=== PATIENT | male | born 1965 | race Caucasian/White ===

== ENCOUNTER 2019-03-22 01:21 | Emergency (ER) | payer SELFPAY, OTHER ==
[2019-03-22] MEDS: ACETAMINOPHEN 500 MG TAB PO (04:37)
[2019-03-22] MEDS: FAMOTIDINE 20 MG TAB PO (04:37)
== END 2019-03-22 04:39 | disposition home or self-care (01) ==
LOC: E/R 01:21
DX: M79.661 Pain in right lower leg (principal); M79.662 Pain in left lower leg; M79.642 Pain in left hand; M79.641 Pain in right hand
CPT/HCPCS: 82962; 99283-25

== ENCOUNTER 2019-03-23 03:02 | Emergency (ER) | payer SELFPAY ==
[2019-03-23] MEDS: IBUPROFEN 800 MG TAB PO (04:46)
[2019-03-23 04:56] LABS: ADD MAN DIFF? NO
[2019-03-23 04:59] LABS: WHITE BLOOD COUNT 14.8 10^3/ul (4.8-10.8)
[2019-03-23 04:59] LABS: BASOPHILS % 0.3 % (0.0-2.0); EOSINOPHILS # 0.1 10^3/ul (0.0-0.5); EOSINOPHILS % 0.5 % (0.0-7.0); HEMATOCRIT 42.2 % (42.0-52.0); HEMOGLOBIN 13.8 g/dl (14.0-18.0); LYMPHOCYTES # 3.1 10^3/ul (0.8-2.9); LYMPHOCYTES % 21.2 % (15.0-51.0); MEAN CORPUSCULAR HEMOGLOBIN 26.9 pg (29.0-33.0); MEAN CORPUSCULAR HGB CONC 32.7 g/dl (32.0-37.0); MEAN CORPUSCULAR VOLUME 82.3 fl (82.0-101.0); MONOCYTE # 1.5 10^3/ul (0.3-0.9); MONOCYTES % 10.1 % (0.0-11.0); NEUTROPHILS % 67.5 % (39.0-77.0); PLATELET COUNT 288 10^3/UL (140-415); RED BLOOD COUNT 5.13 10^6/ul (4.70-6.10); RED CELL DISTRIBUTION WIDTH 13.3 % (11.5-14.5)
[2019-03-23 05:01] LABS: ADD UMIC NO; UR ASCORBIC ACID NEGATIVE (NEGATIVE); UR BACTERIA FEW /HPF (NONE SEEN); UR BILIRUBIN (Dip) NEGATIVE (NEGATIVE); UR BLOOD (Dip) NEGATIVE (NEGATIVE); UR CLARITY SLIGHTLY CLOUDY (CLEAR); UR COLOR YELLOW (YELLOW); UR GLUCOSE (Dip) NEGATIVE (NEGATIVE); UR KETONES (Dip) 2+ mg/dL (NEGATIVE); UR LEUKOCYTE ESTERASE (Dip) NEGATIVE Leu/ul (NEGATIVE); UR MUCUS MODERATE /HPF (NONE SEEN); UR NITRITE (Dip) NEGATIVE (NEGATIVE); UR RBC 0 /HPF (0-5); UR SPECIFIC GRAVITY (Dip) 1.026 (1.003-1.030); UR TOTAL PROTEIN (Dip) NEGATIVE (NEGATIVE); UR UROBILINOGEN (Dip) NEGATIVE (NEGATIVE); UR WBC 2 /HPF (0-5)
[2019-03-23 05:15] LABS: ALANINE AMINOTRANSFERASE 73 IU/L (13-69); ALBUMIN 4.7 g/dl (3.3-4.9); ALKALINE PHOSPHATASE 40 IU/L (42-121); ANION GAP 15 (5-13); ASPARTATE AMINO TRANSFERASE 237 IU/L (15-46); BILIRUBIN,INDIRECT 0.9 mg/dl (0-1.1); BILIRUBIN,TOTAL 0.9 mg/dl (0.2-1.3); BLOOD UREA NITROGEN 17 mg/dl (7-20); CALCIUM 9.7 mg/dl (8.4-10.2); CARBON DIOXIDE 22 mmol/L (21-31); CHLORIDE 103 mmol/L (97-110); CREATININE 0.79 mg/dl (0.61-1.24); Estimated GFR > 60 mL/min (>60); GLUCOSE 89 mg/dl (70-220); POTASSIUM 4.3 mmol/L (3.5-5.1); SODIUM 140 mmol/L (135-144); TOTAL PROTEIN 8.3 g/dl (6.1-8.1)
[2019-03-23] MEDS: SOD CHLORIDE 0.9% 1,000 ML IV (05:41)
== END 2019-03-23 07:50 | disposition home or self-care (01) ==
LOC: E/R 03:02
DX: M54.9 Dorsalgia, unspecified (principal); R40.2142 Coma scale, eyes open, spontaneous, at arrival to emergency department; R40.2252 Coma scale, best verbal response, oriented, at arrival to emergency department; R40.2362 Coma scale, best motor response, obeys commands, at arrival to emergency department; Z59.0 Homelessness
CPT/HCPCS: 36415; 80053; 81001; 81003; 85025; 99284-25

== ENCOUNTER 2019-04-15 07:54 | Emergency (ER) | payer MEDICAID | END 2019-04-15 08:48 | disposition home or self-care (01) | LOC: FTE 07:54 | DX: Z76.0 Encounter for issue of repeat prescription (principal) | CPT/HCPCS: 99281 ==

== ENCOUNTER 2019-05-16 20:17 | Emergency (ER) | payer MEDICAID | END 2019-05-16 21:42 | disposition home or self-care (01) | LOC: FTE 20:17 | DX: Z76.0 Encounter for issue of repeat prescription (principal); M54.9 Dorsalgia, unspecified; K21.9 Gastro-esophageal reflux disease without esophagitis; M62.830 Muscle spasm of back; Z87.2 Personal history of diseases of the skin and subcutaneous tissue | CPT/HCPCS: 99281 ==

== ENCOUNTER 2019-05-20 03:39 | Emergency (ER) | payer MEDICAID | END 2019-05-20 04:35 | disposition home or self-care (01) | LOC: FTE 03:39 | DX: Z76.0 Encounter for issue of repeat prescription (principal) | CPT/HCPCS: 99281; Z7502 ==

== ENCOUNTER 2019-05-26 00:30 | Emergency (ER) | payer OTHER, MEDICAID | END 2019-05-26 01:49 | disposition home or self-care (01) | LOC: E/R 00:30 | DX: R53.83 Other fatigue (principal); R40.2142 Coma scale, eyes open, spontaneous, at arrival to emergency department; R40.2252 Coma scale, best verbal response, oriented, at arrival to emergency department; R40.2362 Coma scale, best motor response, obeys commands, at arrival to emergency department | CPT/HCPCS: 99282; Z7502 ==

== ENCOUNTER 2019-06-16 00:37 | Emergency (ER) | payer OTHER ==
[2019-06-16] MEDS: NAPROXEN 500 MG TAB PO (02:36)
== END 2019-06-16 02:56 | disposition home or self-care (01) ==
LOC: FTE 00:37
DX: T24.232A Burn of second degree of left lower leg, initial encounter (principal); X19.XXXA Contact with other heat and hot substances, initial encounter; Y92.9 Unspecified place or not applicable
CPT/HCPCS: 99283-25; Z7502

== ENCOUNTER 2019-06-22 21:16 | Emergency (ER) | payer OTHER ==
[2019-06-22] MEDS: HYDROCODONE/APAP (5/325) TAB PO (22:41)
== END 2019-06-22 23:09 | disposition home or self-care (01) ==
LOC: FTE 23:09
DX: T24.101D Burn of first degree of unspecified site of right lower limb, except ankle and foot, subsequent encounter (principal); X19.XXXD Contact with other heat and hot substances, subsequent encounter
CPT/HCPCS: 99283; Z7610

== ENCOUNTER 2019-08-11 03:11 | Emergency (ER) | payer OTHER ==
[2019-08-11] MEDS: HYDROCODONE/APAP (10/325) TAB PO (04:47)
== END 2019-08-11 05:21 | disposition home or self-care (01) ==
LOC: FTE 03:11
DX: Z76.0 Encounter for issue of repeat prescription (principal); G89.29 Other chronic pain
CPT/HCPCS: 99283; Z7502

== ENCOUNTER 2019-08-13 15:01 | Emergency (ER) | payer OTHER ==
[2019-08-13] MEDS: KETOROLAC 30 MG INJ IM (15:56)
== END 2019-08-13 16:03 | disposition home or self-care (01) ==
LOC: FTE 15:01
DX: M54.9 Dorsalgia, unspecified (principal)
CPT/HCPCS: 96372; 99284-25